=== PATIENT | male | born 1990 | race Hispanic/Latino ===

== ENCOUNTER 2019-06-04 16:56 | Emergency (ER) | payer SELFPAY ==
[2019-06-04] MEDS ORDERED: Lidocaine 1% PF 5 ML VIAL ONE (17:26)
[2019-06-04] MEDS ORDERED: Adacel (T-DAP) 0.5 ML SYRINGE ONE (18:31)
[2019-06-04] MEDS ORDERED: Bacitracin 1 PK ONE (18:31)
== END 2019-06-04 18:46 | disposition home or self-care (01) ==
LOC: BURERS 16:56
DX: S61.211A Laceration without foreign body of left index finger without damage to nail, initial encounter (principal); F17.210 Nicotine dependence, cigarettes, uncomplicated; Z71.6 Tobacco abuse counseling; W45.8XXA Other foreign body or object entering through skin, initial encounter
CPT/HCPCS: 12002; 90715; 99406; J2001

== ENCOUNTER 2020-02-03 11:14 | Emergency (ER) | payer OTHER, SELFPAY ==
[2020-02-03] MEDS ORDERED: Morphine 4 MG/ML VIAL ONE (11:29)
--- NOTE | 2020-02-03 16:43 | RAD ---
RIGHT FEMUR TWO VIEWS: 02/03/20 AP and lateral views were provided. The femur appears intact with no sign of fracture or bony destruc tive lesion. There is no dislocation at the hip. No joint effusion is seen at the knee. IMPRESSION: No acute findings. POS: HOME
== END 2020-02-03 12:22 | disposition home or self-care (01) ==
LOC: BURERS 11:14
DX: S80.11XA Contusion of right lower leg, initial encounter (principal); F17.210 Nicotine dependence, cigarettes, uncomplicated; X58.XXXA Exposure to other specified factors, initial encounter
CPT/HCPCS: 96372; J2270